=== PATIENT | male | born 1970 | race Caucasian/White ===

== ENCOUNTER → 2022-03-23 | Outpatient (CLI) | payer BC ==
[~2022-03-23] MED LIST: ALEVE220 MG PO; ASPIR 8181 MG PO; GLUCOPHAGE1000 MG PO; HYDROCHLOROTHIA25 MG PO; LISINOPRIL10 MG PO; SILDENAFIL20 MG PO; SINGULAIR10 MG PO; VALTREX500 MG PO
== END ==
LOC: KOH-I 08:41
DX: M79.671 Pain in right foot (principal)
CPT/HCPCS: 73630

== ENCOUNTER → 2022-03-29 | Outpatient (CLI) | payer BC | LOC: KOH-I 13:14 | DX: E11.69 Type 2 diabetes mellitus with other specified complication (principal); M86.9 Osteomyelitis, unspecified; T14.8XXA Other injury of unspecified body region, initial encounter | CPT/HCPCS: 73718; 93926 ==

== ENCOUNTER → 2022-04-11 | Outpatient (CLI) | payer BC ==
[~2022-04-11] VITALS: Ht 193 cm; Wt 117.9 kg
[~2022-04-11] MED LIST changes: +ALLERGY RELIEF5 MG PO; +BUPROPION XL150 MG PO; +DULOXETINE HCL60 MG PO; +FLOVENT DISKU100 MCG INH; +LEVOFLOXACIN750 MG PO; +MELOXICAM15 MG PO
== END ==
LOC: OPSV 08:00
DX: Z01.810 Encounter for preprocedural cardiovascular examination (principal); M86.9 Osteomyelitis, unspecified
CPT/HCPCS: 93005; G0463

== ENCOUNTER → 2022-04-12 | Day surgery (SDC) | payer BC ==
[~2022-04-12] VITALS: Ht 193 cm; Wt 123.4 kg
[2022-04-12 07:28] LABS: BUN/CREATININE RATIO 41 (0-10)
== END | disposition home or self-care (01) ==
LOC: OR 05:57
PROVIDERS: Anesthesiology
DX: M86.671 Other chronic osteomyelitis, right ankle and foot (principal); E11.621 Type 2 diabetes mellitus with foot ulcer; L97.519 Non-pressure chronic ulcer of other part of right foot with unspecified severity; E11.40 Type 2 diabetes mellitus with diabetic neuropathy, unspecified; I10 Essential (primary) hypertension; J45.909 Unspecified asthma, uncomplicated
CPT/HCPCS: 73630; 80048; 82962; 87070; 87205; J0690; J1100; J1170; J2001; J2250; J2405; J2704; J2795; J3010; J3370

== ENCOUNTER → 2022-04-13 | Outpatient (CLI) | payer BC ==
[~2022-04-13] VITALS: Ht 193 cm; Wt 117.9 kg
== END ==
LOC: OPSV 09:00
DX: M86.9 Osteomyelitis, unspecified (principal)
CPT/HCPCS: 96365; 96366; J2407; J7070